=== PATIENT | male | born 1945 | race Caucasian/White ===

== ENCOUNTER → 2017-06-13 | Outpatient (CLI) | payer OTHER ==
[~2017-06-13] MED LIST: AMLO2.5T PO; ASPI81TA28 PO; LEVO125T5 PO; SIMV20TA2 PO
--- NOTE | 2017-06-13 12:40 | DIAGNOSTIC IMAGING REPORT ---
CHEST 2 VIEWS ROUTINE CLINICAL HISTORY: 72 years-old Male presenting with R05 [id number]. TECHNIQUE: PA and lateral views of the chest were obtained. COMPARISON: 12/09/2005. FINDINGS: Atherosclerosis of the aortic arch. Cardiac silhouette normal in size. Lungs and pleural spaces clear. Osseous structures normal. Cholecystectomy clips noted. IMPRESSION: 1. No acute cardiopulmonary disease. Electronically signed by: Huseyin Whitmore M.D. 06/13/2017 12:39 PM Dictated Date/Time: 06/13/2017 12:38 PM
== END | disposition home or self-care (01) ==
LOC: C.RAD1850 12:30
PROVIDERS: ATTEND Physician Assistant Medical
DX: R05 Cough (principal)

== ENCOUNTER 2021-01-08 20:35 | Inpatient (IN) ==
[2021-01-08 21:52] LABS: Basophils # (auto) 0.02 K/uL (0-0.2); Basophils % (auto) 0.2 %; Eosinophils # (auto) 0.12 K/uL (0-0.5); Eosinophils % (auto) 1.5 %; Hematocrit (blood only) 46.3 % (42-52); Hemoglobin 16.2 g/dL (14.0-18.0); Immature Granulocytes # (auto) 0.02 K/uL (0.00-0.02); Immature Granulocytes % (auto) 0.2 %; Lymphocytes # (auto) 0.98 K/uL (1.2-3.4); Lymphocytes % (auto) 12.1 %; Mean Corpuscular Hemoglobin 34.6 pg (25-34); Mean Corpuscular Volume 98.9 fL (80-100); Mean Platelet Volume 9.9 fL (7.4-10.4); Monocytes % (auto) 6.2 %; Neutrophils # (auto) 6.49 K/uL (1.4-6.5); Neutrophils % (auto) 79.8 %; Platelet Count 196 K/uL (130-400); RDW Standard Deviation 47.2 fL (36.4-46.3); Red Blood Count 4.68 M/uL (4.7-6.1); White Blood Count 8.13 K/uL (4.8-10.8)
[2021-01-08 22:01] LABS: INR 1.1 (0.9-1.1); Partial Thromboplastin Ratio 0.9; Partial Thromboplastin Time 24.1 Seconds (21.0-31.0); Prothrombin Time 11.4 Seconds (9.0-12.0)
[2021-01-08 22:28] LABS: Albumin Level 3.9 gm/dl (3.4-5.0); BUN Creatinine Ratio 10.4 (10-20); Calcium 8.8 mg/dl (8.5-10.1); Creatinine Clr Calc Pharmacy 45.1 ml/min; Est GFR (African American) 58.1 ml/min; Est GFR (Non-African American) 50.1 ml/min
[2021-01-08 22:40] LABS: Bilirubin,Total 0.5 mg/dl (0.2-1); Total Protein 6.9 gm/dl (6.4-8.2); Troponin I 4.83 ng/ml (0-0.045)
[2021-01-08 22:41] LABS: Albumin Globulin Ratio 1.3 (0.9-2)
[2021-01-08] MEDS ORDERED: OPTIRAY 320 125ml IV ONE (23:12)
--- NOTE | 2021-01-08 23:29 | Emergency Department Note ---
ED Visit Note Physician Evaluation Note: I have personally evaluated and examined this patient. I agree with assessment and plan of Tashia Rasmussen PA-C. Left chest pain around 3pm today after dental appointment. Resolved other than some residual left back discomfort. No history of CAD though father and daughter with cardiac issues. EKG initially unremarkable, repeat shows inversion T waves throughout. Positive Troponin. Given posterior pain felt CTA chest indicated which was fortunately unremarkable. Charles Moore MD
--- NOTE | 2021-01-09 00:03 | History & Physical Report ---
Date of Service January 09, 2021 Assessment & Plan (1) NSTEMI (non-ST elevated myocardial infarction): Plan: Mr. Zambrano is a 75 yo M with HTN, HLD and prediabetes who presented for evaluation of sudden onset left sided chest pain. - Initial trop elevated to 4.8 + EKG changes (T wave inversions in lateral leads) concerning for NSTEMI. - Chest CTA ruled out other causes of chest pain, including PE and aortic dissection. 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 - continue heparin gtt - nitroglycerin prn - cards consult ordered, suspect patient will need a cath (2) Prediabetes: Plan: - HbA1c was 6.3 (last checked 12/21/20) - recommend DMII carb consistent diet when no longer NPO (3) Hypertension: Plan: - continue home dose amlodipine (4) Hyperlipidemia: Plan: - lipid panel from 12/21/20 showing good control with a total cholesterol of 129, LDL of 58, HDL of 46, ratio of 3 - change from home simvastatin to high intensity statin with Crestor 20mg, daily given presentation with NSTEMI - continue daily baby aspirin (5) Hypothyroidism: Plan: - continue home dose levothyroxine Diet: NPO in the event of possible cath. Recommend heart healthy, DMII diet when able to eat DVT ppx: On heparin gtt Dispo: PCU/tele Code: Full, I discussed with patient History of Present Illness Primary Care Provider: Rhys George MD Mr. Zambrano is a 75 yo M with a PMHx of prediabetes, HTN, HLD who presented to the [facility] ED for evaluation of new onset left sided chest pain. It began at 3pm this afternoon after a dental appointment. It radiated the intrascapular region of the back - not up to the jaw or down the left arm. He did find himself slightly short of breath at the time the pain came on - however he denied any nausea or diaphoresis. He states that he took 3 tabs of aspirin 81mg in an effort to treat the pain prior to coming to the ED. For the past 3 months, when outdoors mowing his lawn (with a push mower) he would get pain in the anterior aspect of his neck. It seemed to be exertional. Social Hx: He was a former smoker - quit 40 years ago. No eoth use. Family Hx: Father of an AR at age 58. In the ED, his vitals were normal. Troponin was elevated to 4.8. His CBC was normal. CMP was unremarkable except for an elevated AST of 64. His EKG showed non-specific T wave inversions in lateral leads. CXR was normal. Chest CTA showed no evidence of PE or aortic dissection (per STAT RAD). He was started on a heparin drip (no bolus). Allergies Allergy/AdvReac Type Severity Reaction Status Date / Time No Known Allergies Allergy Unknown Verified 01/08/21 23:47 Home Medications Medication Instructions Recorded Confirmed Type amlodipine 2.5 mg tablet 2.5 mg PO DAILY #90 tab 12/05/20 01/08/21 Rx levothyroxine 137 mcg tablet 137 mcg PO DAILY #90 tab 12/05/20 01/08/21 Rx simvastatin 20 mg tablet 20 mg PO HS #90 tab 12/05/20 01/08/21 Rx aspirin 81 mg tablet,delayed 81 mg PO HS 01/08/21 01/08/21 History release aspirin 81 mg tablet,delayed 243 mg PO ONCE 01/08/21 01/08/21 History release Past Med/Surg History Medical History Arthritis of hand History of colon polyps 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 Hyperlipidemia Hypertension Hypothyroidism Surgical History History of appendectomy History of cataract surgery RT/LEFT History of colonoscopy History of COVID-27 MAY 2020 (POOR APPETITE, NO ENERGY) History of ERCP HX OF PANCREATITIS History of esophagogastroduodenoscopy (EGD) [place] teeth removed Family History Grandfather (Maternal) Diabetes Sister Breast cancer Mother Breast cancer Father Myocardial infarction Other No family history of adverse response to anesthesia Denies family history of Ovarian cancer Prostate cancer Colorectal cancer Social History Smoking Status: Former smoker Tobacco Type: Cigarettes Age Started Using Tobacco: 10; Age Quit Using Tobacco: 33; packs per day: 3; Cigarettes Per Day: QUIT OVER 40 YEARS AGO; Second Hand Exposure: No; Hx Alcohol Use: Yes Alcohol type: beer Alcohol Intake Frequency: 2-3 x/Week Alcohol Intake Frequency Comment: more in the summer, socially Hx Substance Use: No Preferred Language: Burundian Communication Ability: Effective Visual Impairment: No Limitations Hearing Ability: Use of Hearing Aid 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: No Beliefs That Will Affect Care: None marital status: Current Living Situation: Spouse current occupational status: employed and retired 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, 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 Feels Safe at Home: Yes Childhood Exposure to Second-Hand Smoke: Yes Dental Care, Regularly: Yes Physical Activity Frequency: Daily Seatbelt Use: always Sunscreen Use: Yes (occasionally) Assistive Devices: Hearing Aid - Bilateral Review of Systems Review of Systems: as per HPI Physical Exam Constitutional: WD/WN, vitals as above cooperative; no acute distress Eyes: + anicteric sclerae ENMT: external ear and nose normal, oropharynx normal Neck: trachea midline Respiratory: normal respiratory effort, lungs clear to auscultation Cardiovascular: RRR, no murmur, no edema Heart Sounds: normal S1 and normal S2 Vessels: normal carotid upstroke; no carotid bruit Extremities: no pedal edema Gastrointestinal (Abdomen): normal bowel sounds, soft, nontender, no hepatosplenomegaly Musculoskeletal: Head/Neck/Chest: normocephalic and head atraumatic Skin: no rashes, warm and dry Psychiatric: A+Ox3, euthymic affect Results & Data Results & Data ([facility]) Vital Signs (Past 12 Hours) Vital Signs Temp Pulse Resp BP Pulse Ox 01/08/21 23:36 95 01/08/21 23:22 68 14 155/87 H 95 01/08/21 20:52 36.9 C 77 18 168/110 H 96 Supervising Physician Co-Signing Physician Notes Attending addendum: I have physically seen this patient, have supervised the medical residents activities, and agree with the H&P unless as otherwise noted. Assessment and Plan: Non-STEMI/hypertension- The patient will be admitted to telemetry for serial cardiac enzymes, serial EKG's, cardiac rhythm monitoring and a 2-D echocardiogram with Dopplers. Troponin IV 4.830 upon admission Continue amlodipine Heparin standard concentration drip IV per protocol. Aspirin 81 mg daily, did receive 324 loading dose this evening Consult cardiology Hyperlipidemia- Change from simvastatin to high-dose statin Crestor 20 mg daily Hypothyroidism- Continue levothyroxine Remaining orders and notations as noted Resident Activity Tracking Resident Involvement: Resident Care Provided Care Provided: Adult [facility]
[2021-01-09] MEDS ORDERED: Heparin IV Adult Wt-Based Standard *NO* Bolus Protocol ONE (00:07)
[2021-01-09] MEDS ORDERED: ASPIRIN 81 MG ECTAB PO STA (00:21)
[2021-01-09] MEDS ORDERED: HEPARIN SODIUM/DEXTROSE 25,000 UNITS/500 ML BAG IV SCH (00:30)
--- NOTE | 2021-01-09 01:12 | Emergency Department Note ---
History of Present Illness General Chief Complaint: Chest Pain Stated Complaint: CHEST PAIN Time Seen by Provider: 01/08/21 22:48 History of Present Illness Maximum Pain Intensity: 6 This 75-year-old with no prior heart disease presents to the ER complaining of chest pain that goes to his back since 3 PM today after leaving the dentist office Location: Chest Quality: Discomfort Severity: Moderate Duration: Today Timing: Started at 3 PM Context: Patient was concerned and came in Modifying factors: better with nothing; worse with activity Patient took 3 aspirins prior to arrival. He states the pain is eased up a fair bit. No prior stress test or echo. He quit smoking 40 years ago. Patient denies dyspnea, abdominal pain, numbness, tingling, localized weakness, diapho resis. He states earlier the pain was quite severe but is much better now. Home Medications Medication Instructions Recorded Confirmed Type amlodipine 2.5 mg tablet 2.5 mg PO DAILY #90 tab 12/05/20 01/08/21 Rx levothyroxine 137 mcg tablet 137 mcg PO DAILY #90 tab 12/05/20 01/08/21 Rx simvastatin 20 mg tablet 20 mg PO HS #90 tab 12/05/20 01/08/21 Rx aspirin 81 mg tablet,delayed 81 mg PO HS 01/08/21 01/08/21 History release aspirin 81 mg tablet,delayed 243 mg PO ONCE 01/08/21 01/08/21 History release Allergies Allergy/AdvReac Type Severity Reaction Status Date / Time No Known Allergies Allergy Unknown Verified 01/08/21 23:47 Past Med/Surg History Medical History Arthritis of hand History of colon polyps 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 Hyperlipidemia Hypertension Hypothyroidism Surgical History History of appendectomy History of cataract surgery RT/LEFT History of colonoscopy History of COVID-27 MAY 2020 (POOR APPETITE, NO ENERGY) History of ERCP HX OF PANCREATITIS History of esophagogastroduodenoscopy (EGD) [place] teeth removed Family History Grandfather (Maternal) Diabetes Sister Breast cancer Mother Breast cancer Father Myocardial infarction Other No family history of adverse response to anesthesia Denies family history of Ovarian cancer Prostate cancer Colorectal cancer Social History Smoking Status: Former smoker Tobacco Type: Cigarettes Age Started Using Tobacco: 10; Age Quit Using Tobacco: 33; packs per day: 3; Cigarettes Per Day: QUIT OVER 40 YEARS AGO; Second Hand Exposure: No; Hx Alcohol Use: Yes Alcohol type: beer, wine and hard liquor Alcohol Intake Frequency: 2-3 x/Week Alcohol Intake Frequency Comment: more in the summer, socially Hx Substance Use: No Preferred Language: Georgian Communication Ability: Effective Visual Impairment: No Limitations Hearing Ability: Use of Hearing Aid Bank Courier Required: No Beliefs That Will Affect Care: None marital status: Current Living Situation: Spouse current occupational status: employed and retired 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, 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 Feels Safe at Home: Yes Childhood Exposure to Second-Hand Smoke: Yes Dental Care, Regularly: Yes Physical Activity Frequency: Daily Seatbelt Use: always Sunscreen Use: Yes (occasionally) Assistive Devices: Hearing Aid - Bilateral Review of Systems A total of 10 systems reviewed and were otherwise negative Physical Exam Vital Signs Vital Signs - 24 hr 01/08/21 20:52 01/08/21 23:22 01/08/21 23:36 Temperature 36.9 C Temperature Source Temporal Artery Scan Pulse Rate 77 68 Pulse Rate from SpO2 Sensor 69 Respiratory Rate 18 14 Respiratory Depth Normal Blood Pressure 168/110 H 155/87 H Blood Pressure Mean 129 109 Pulse Oximetry 96 95 95 Oxygen Delivery Method Room Air Room Air Sepsis Recent Fever Within 48 Hours No Sepsis New/Unexplained Change in Mental Status N/A Sepsis Action Taken by Nursing No Action Required VITALS: Vitals are noted on the nurse's note and reviewed by myself. Vital signs stable. GENERAL: Pleasant male, in no acute distress, nondiaphoretic, well-developed well-nourished. SKIN: The skin was without rashes, erythema, edema, or bruising. There is no tenting of the skin. Capillary reflex less than 2 seconds. HEAD: Normocephalic atraumatic. EARS: External auditory canals clear, EYES: Pupils equal round and reactive to light and accommodation. Conjunctivae without injection, sclerae without icterus. Extraocular movements intact. NOSE: Patent, turbinates without inflammation or discharge. MOUTH: Mucous membranes moist. Pharynx without erythema or exudate. Uvula midline. Airway patent. Tongue does not deviate. NECK: Supple without nuchal rigidity. No lymphadenopathy. No thyromegaly. Cervical spine is nontender. No JVD. HEART: Regular rate and rhythm LUNGS: Clear to auscultation bilaterally without wheezes, rales or rhonchi. No retractions or accessory muscle use. ABDOMEN: Positive bowel sounds x 4. Normal tympanic percussion. Soft, nontender, without masses or organomegaly. Connell sign negative. No guarding or rebound tenderness. No CVA tenderness MUSCULOSKELETAL: No muscle atrophy, erythema, or edema noted. NEURO: Patient was alert and oriented to person place and time. Normal sensation to light and sharp touch. No focal neurological deficits. Course Administered Medications Heparin Sodium/Dextrose (Heparin Sodium/Dextrose) 25,000 units in 500 mls @ 26 mls/hr IV .[id number] [facility]; Protocol Stop: 02/08/21 00:29 Last Admin: 01/09/21 00:51 Dose: 1,300 units/hr, 26 mls/hr Documented by: [id number] Cosigned by: [id number] Discontinued Medications Aspirin (Aspirin 81 Mg Ectab) 81 mg PO ONE STA Stop: 01/09/21 00:22 Last Admin: 01/09/21 00:53 Dose: 81 mg Documented by: [id number] Ioversol (Optiray 320 125ml) 110 ml IV ONCE ONE Stop: 01/08/21 23:13 Last Admin: 01/08/21 23:13 Dose: 1 ml Documented by: [id number] Medical Decision Making Medical Records Attestation: I reviewed the patient's medical records. Home Medications Current Medication List: was personally reviewed by ok Laboratory Data Attestation: I reviewed the patient's lab results. Result diagrams: 01/08/21 21:36 01/08/21 21:36 Labs: Lab Results 01/08/21 01/08/21 01/08/21 Range/Units 21:36 21:36 21:36 WBC 8.13 (4.8-10.8) K/uL RBC 4.68 L (4.7-6.1) M/uL Hgb 16.2 (14.0-18.0) g/dL Hct 46.3 (42-52) % MCV 98.9 (80-100) fL MCH 34.6 H (25-34) pg MCHC 35.0 (32-36) g/dL RDW Std Deviation 47.2 H (36.4-46.3) fL RDW Coeff of Gio 13.0 (11.5-14.5) % Plt Count 196 (130-400) K/uL MPV 9.9 (7.4-10.4) fL Immature Gran % (Auto) 0.2 % Neut % (Auto) 79.8 % Lymph % (Auto) 12.1 % [place] % (Auto) 6.2 % Eos % (Auto) 1.5 % Baso % (Auto) 0.2 % Neut # (Auto) 6.49 (1.4-6.5) K/uL Lymph # (Auto) 0.98 L (1.2-3.4) K/uL [place] # (Auto) 0.50 (0.11-0.59) K/uL Eos # (Auto) 0.12 (0-0.5) K/uL Baso # (Auto) 0.02 (0-0.2) K/uL Immature Gran # (Auto) 0.02 (0.00-0.02) K/uL PT 11.4 (9.0-12.0) Seconds INR 1.1 (0.9-1.1) APTT 24.1 (21.0-31.0) Seconds PTT Ratio 0.9 Sodium 144 (136-145) mmol/L Potassium 4.0 (3.5-5.1) mmol/L Chloride 110 H (98-107) mmol/L Carbon Dioxide 32 (21-32) mmol/L Anion Gap 2.0 L (3-11) BUN 14 (7-18) mg/dl Creatinine 1.37 (0.6-1.4) mg/dl Est Cr Clr Drug Dosing 45.1 ml/min Est GFR ( Amer) 58.1 ml/min Est GFR (Non-Af Amer) 50.1 ml/min BUN/Creatinine Ratio 10.4 (10-20) Glucose 166 H (70-99) mg/dl Calcium 8.8 (8.5-10.1) mg/dl Total Bilirubin 0.5 (0.2-1) mg/dl AST 64 H (15-37) U/L ALT 55 (12-78) U/L Alkaline Phosphatase 137 H (45-117) U/L Troponin I 4.830 H* (0-0.045) ng/ml Total Protein 6.9 (6.4-8.2) gm/dl Albumin 3.9 (3.4-5.0) gm/dl Globulin 3.0 (2.5-4.0) gm/dl Albumin/Globulin Ratio 1.3 (0.9-2) MDM Narrative Prior records/ancillary studies reviewed. Triage Nursing notes reviewed. Additional history obtained from family. The patient's history was concerning for chest pain. Differential diagnosis: Etiologies such as cardiac ischemia, aortic dissection, pulmonary embolism, pneumonia, pneumothorax, musculoskeletal, infections, pericarditis, myocarditis, esophageal rupture, gastrointestinal, as well as others were entertained. Physical examination: As above. ER treatment provided: An order was placed for continuous cardiac monitoring. The monitor shows a rate of 60-100 with a sinus rhythm. IV and stat dissection order On reassessment the patient felt better. Diagnostic interpretation by me: #1 the electrocardiogram was negative for pathologic change. Normal sinus, norm al intervals, no acute ST-T wave changes. Rate is 70. Impression normal sinus rhythm interpreted by myself EKG ordered for chest pain I think arrhythmia is unlikely. EKG shows normal sinus rhythm with no interval abnormalities such as QT prolongation or WPW. There are no findings to suggest Brugada syndrome. Cardiac monitoring in the emergency department reveals no tachycardic or bradycardic dysrhythmia. Hypertrophic cardiomyopathy was considered but there are no clear historical elements pointing toward this. EKG is not suggestive. The QRS voltage is not extremely large and there are no sug gestive Q waves. #2 EKG ordered for positive troponin EKG: Normal sinus, T wave inversions lead I and aVL, rate of 65, normal intervals,. Impression new T wave inversions in the anterior leads interpreted by myself I think arrhythmia is unlikely. EKG shows normal sinus rhythm with no interval abnormalities such as QT prolongation or WPW. There are no findings to suggest Brugada syndrome. Cardiac monitoring in the emergency department reveals no tachycardic or bradycardic dysrhythmia. Hypertrophic cardiomyopathy was considered but there are no clear historical elements pointing toward this. EKG is not suggestive. The QRS voltage is not extremely large and there are no suggestive Q waves. #3 EKG ordered for chest pain EKG: Normal sinus, T wave inversions lead I and aVL, rate of 65, normal intervals, T wave flattening in the lateral leads. Impression T wave inversions and T wave flattening in the anterior lateral leads interpreted by myself I think arrhythmia is unlikely. EKG shows normal sinus rhythm with no interval abnormalities such as QT prolongation or WPW. There are no findings to suggest Brugada syndrome. Cardiac monitoring in the emergency department reveals no tachycardic or bradycardic dysrhythmia. Hypertrophic cardiomyopathy was considered but there are no clear historical elements pointing toward this. EKG is not suggestive. The QRS voltage is not extremely large and there are no suggestive Q waves. The labs revealed positive troponin Imaging studies: Chest x-ray with no acute consolidation, pneumothorax or free air per my trepidation Preliminary Findings Only See Final Report For Complete Findings CT CHEST W/WO Contrast: No pulmonary artery filling defects to suggest pulmonary artery thrombosis. No thoracic aortic aneurysm or dissection is present. Minimal atherosclerotic vascular calcifications. Heart is normal size. No evidence for right heart strain. No pericardial fluid or thickening. Mild bilateral dependent atelectasis. No definite lobar pneumonia. Emphysematous changes with bullae greatest in the upper lobes. No pleural effusion or pneumothorax. No acute fracture is identified. Degenerative changes of the thoracic spine. Limited images of the upper abdomen demonstrates prominent hypodense/fatty liver. Status post cholecystectomy. Radiologist: Joaquin Cannon M.D. HEART SCORE: Hx: high/mod/low suspicion: 2 ECG: ST depression/nonspecific changes/normal: 1 Age: Greater than 65/45-64/less than 45: 2 Risk factors: (Hypertension, hyperlipidemia, diabetes, coronary disease, tobacco use, cocaine use): 2 Troponin: Greater than 2 times normal limits/1-2 times normal limits/normal: 2 Total: 9 Consultation: A consultation was placed with the hospitalist. The case was discussed and diagnostics were reviewed. The patient was evaluated in the ER for further treatment. Exam and history seem consistent with NSTEMI. Patient was started on heparin. This was discussed with the hospitalist. CTA was negative. Heart score is high. Patient is agreeable. Patient was reassessed multiple times. EKG was ordered x3. First troponin was quite elevated. No STEMI on EKG x3. No recent cardiac work-up per patient. Patient was admitted to the medical service. By the evaluation outlined above emergent etiologies such as aortic dissection, pulmonary embolism, pneumonia, pneumothorax, infections, pericarditis, myocarditis, gastrointestinal, as well as others were deemed relatively unlikely. The pt informed about the findings as listed above. All questions were answered and pleased with the treatment. Impression & Plan NSTEMI (non-ST elevated myocardial infarction) Critical Care Time Critical Care Time: Yes Total Critical Care Time: 35 I have personally spent 35 minutes of critical care time in the direct management of this patient. This includes bedside care, interpretation of diagnostic studies, and testing, discussion with consultants, patient, and f amily members, and other required patient management activities. This 35 minutes is in excess of all separately billable procedures. Discharge Plan Visit Data Chief Complaint: Chest Pain Stated Complaint: CHEST PAIN ED Provider: Charles Moore ED Midlevel Provider: Hilary Rasmussen Discharge Problem: NSTEMI (non-ST elevated myocardial infarction) Patient Disposition: Admitted As Inpatient Condition: Fair
[2021-01-09] MEDS ORDERED: NITROGLYCERIN SL 0.4 MG/TAB TAB SL PRN (03:02)
[2021-01-09] MEDS ORDERED: ACETAMINOPHEN 325 MG TAB PO PRN (03:02)
[2021-01-09] MEDS ORDERED: ONDANSETRON INJ 2 MG/ML 2 ML VIAL IV PRN (03:02)
[2021-01-09] MEDS: SODIUM CHLORIDE 0.9% 1000ML 1,000 ML IV SCH ×2 (03:30→12:12)
[2021-01-09] MEDS ORDERED: NITROGLYCERIN 2% OINTMENT 30GM TUBE EXT SCH (05:30)
[2021-01-09] MEDS ORDERED: STAT IV Infusion **Titration per Protocol STA (06:02)
[2021-01-09] MEDS ORDERED: NITROGLYCERIN/D5W 100MCG/ML 250 ML IV SCH (06:15)
[2021-01-09] MEDS ORDERED: LEVOTHYROXINE SODIUM 137 MCG TABLET PO SCH (06:30)
--- NOTE | 2021-01-09 07:10 | XRay Report ---
XR chest 1V portable CLINICAL HISTORY: Chest Pain COMPARISON STUDY: June 13, 2017 FINDINGS: No pneumothorax. No pleural effusion. Reticular opacities are seen at the right lower lung region and could represent infiltrative process, atelectasis or/and chronic scarring. This area appear more prominent than on prior chest radiograph. Cardiomediastinal silhouette is within normal limits in size. No significant pulmonary vascular congestion.. Osseous structures: Minimal degenerative changes of the spine. IMPRESSION: 1. Reticular opacity at the right lower lung which could represent atelectasis, infiltrate or/and ch ronic scarring. ACT 112: Negative or not required by law. The above report was generated using voice recognition software. It may contain grammatical, syntax o r spelling errors. Electronically signed by: Brandi Horowitz DO 01/09/2021 7:08 AM
[2021-01-09 07:48] LABS: Partial Thromboplastin Ratio 2.2
[2021-01-09 07:53] LABS: Partial Thromboplastin Time 58.7 Seconds (21.0-31.0)
--- NOTE | 2021-01-09 08:08 | CT Scan Report ---
CT ANGIOGRAM OF THE CHEST COMBO CLINICAL HISTORY: Chest pain into back COMPARISON STUDY: None TECHNIQUE: Before and following the IV administration of 119 cc of Optiray, CT angiogram of the chest was performed from the thoracic inlet to the upper abdomen utilizing the dissection protocol. Images are reviewed in the axial, sagittal, and coronal planes. 3-D MIPS images are created and assessed. I V contrast was administered without complication. A dose lowering technique was utilized adhering to the principles of ALARA. CT DOSE: 625.98 mGy.cm FINDINGS: There is adequate opacification of the aortic arch. Thoracic aorta is normal in caliber without aneur ysmal dilatation or dissection. No aortic wall hematoma is seen. Scattered calcified plaques are seen within aortic wall. Greater vessels are normal in caliber and patent. Few calcified plaques are seen within greater vessel granados. Visualized abdominal portion of aorta is normal in caliber. Thyroid: Is not well seen. Distal aspect of esophagus is patent. Small fat containing hiatal hernia is seen. Pulmonary vasculature: The pulmonary artery is normal in caliber.. Heart: The heart is normal in size and configuration, and without pericardial effusion. Moderate romelia nary calcifications. Lungs and pleural spaces: Tracheobronchial tree is patent. Moderate centrilobular upper lobe dominant emphysema is seen. No large infiltrates or consolidative lesions are seen. There is atelectasis at dependent portions of bilateral lower lobes. No pleural effusion demonstrated. Mild bilateral apical pleural parenchymal scarring is seen. -9 mm pulmonary nodule is seen within the right apex (4/32) -5 mm pulmonary nodule is seen within lingula (4/134) No other pulmonary nodules are seen however evaluation is limited due to partial expiratory phase. Upper abdomen: Limited evaluation of upper abdominal viscera shows cirrhotic morphology of the liver and status post cholecystectomy.. Skeletal structures: Minimal degenerative changes of the spine.. IMPRESSION: 1. Normal appearance of thoracic aorta without aneurysmal dilatation or dissection. No intramural he matoma is seen. 2. No large infiltrates or consolidative lesions are seen. Mild atelectasis. Limited exam due to par tial expiratory phase and low lung volumes 3. Pulmonary nodules, largest is measured 9 mm in size. In the absence of prior study for comparison , short-term follow-up in 3-6 months is recommended per Fleischner Society guidelines. 4. Emphysema. 5. Cirrhotic morphology of the liver. Please correlate above-mentioned findings with prior history. 6. The rest of findings as above. ACT 112: Positive. There are findings on this exam that require communication between the performing entity and the patient following Patient Test Result Information Act ([place] Act 112) guidelines. The above report was generated using voice recognition software. It may contain grammatical, syntax o r spelling errors. Electronically signed by: Brandi Horowitz DO 01/09/2021 8:07 AM
[2021-01-09] MEDS ORDERED: amLODIPine BESYLATE 5 MG TAB PO SCH (09:00)
[2021-01-09] MEDS ORDERED: ROSUVASTATIN CALCIUM 20 MG TAB PO SCH (09:00)
[2021-01-09] MEDS ORDERED: ASPIRIN 81 MG ECTAB PO SCH (09:15)
--- NOTE | 2021-01-09 09:45 | Cardiology Consultation ---
Date of Consultation January 09, 2021 Assessment & Plan (1) NSTEMI (non-ST elevated myocardial infarction): (2) Hypertension: (3) Hyperlipidemia: (4) Ischemic cardiomyopathy: ASSESSMENT/PLAN: 1. NSTEMI: Currently pain-free. Discussed diagnosis with patient and his . Continue aspirin 81 mg daily. On heparin drip. Recommended cardiac catheterization. Risks and benefits discussed with him in detail. He was made aware that CT surgery is not available at this facility. Continue high- intensity statin therapy. Not currently on beta-aaliyah as he has been bradycardic but if heart rate improves, would recommend carvedilol. Recommend LA-inhibitor. Cardiac rehabilitation on discharge. 2. Ischemic cardiomyopathy: Hopefully LV systolic function improves if revascularization can be achieved. Recommend low-dose carvedilol if heart rate tolerates beta-aaliyah. Recommend LA-inhibitor. He appears euvolemic on examination. 3. Hypertension: Blood pressure well controlled. If blood pressure becomes an issue with titrating other cardiac meds, would recommend discontinuation of amlodipine. 4. Dyslipidemia: Agree with high-intensity statin therapy. 5. Disposition: Cardiology will continue to follow. Cardiac catheterization planned for today. Highly complex medical issues. Thank you for allowing me to participate in the care of your patient. Please call for any other questions or concerns. Sincerely, Mason Aguilera M.D. History of Present Illness Reason for Consultation: NSTEMI Requesting Physician: Dr. Perkins Attending Physician: Lyndon Glez, History of Present Illness Mr. Juan is a very pleasant 75-year-old gentleman with a history significant for hypertension, dyslipidemia, and prediabetes. He was admitted on 01/09/2021 with NSTEMI. For the past 2 months or so he has been experiencing pain at the base of his th roat while using a push mower and other strenuous activities that would resolve with rest. On 01/08/2021 when driving home from a dentist appointment, he noted upper substernal chest discomfort that radiated straight through the back and into the neck. He did not immediately come to the emergency department but estimates that he drove in with his sometime around or after 8:00 p.m.. ECG demonstrated lateral T-wave inversion with perhaps slight but nondiagnostic ST elevation in I and aVL. He was given nitroglycerin paste and eventually nitroglycerin drip as well as a heparin drip. The pain subsided but then recurred just slightly at approximately 3:00 a.m. before quickly resolving again. He has been chest pain-free since then. He denies associated shortness of breath or diaphoresis. He denies melena, hematochezia, hematuria, or other bleeding. He denies syncope, near-syncope, palpitations, edema. He has not had a cardiac catheterization in the past. Review of systems: As above. Review of systems otherwise negative/unremarkable. Family history: Father at the age of 58 with LA. Social history: He quit smoking approximately 40 years ago after 3 packs per day for approximately 20 years. Occasional alcohol. No drugs. Lives at home with his . Three children. Grandchildren. Great grandchildren. Retired but currently works part-time at a [employer] course. He enjoys fishing. His present at the bedside. Allergies Allergy/AdvReac Type Severity Reaction Status Date / Time No Known Allergies Allergy Unknown Verified 01/08/21 23:47 Home Medications Medication Instructions Recorded Confirmed Type amlodipine 2.5 mg tablet 2.5 mg PO DAILY #90 tab 12/05/20 01/08/21 Rx levothyroxine 137 mcg tablet 137 mcg PO DAILY #90 tab 12/05/20 01/08/21 Rx simvastatin 20 mg tablet 20 mg PO HS #90 tab 12/05/20 01/08/21 Rx aspirin 81 mg tablet,delayed 81 mg PO HS 01/08/21 01/08/21 History release aspirin 81 mg tablet,delayed 243 mg PO ONCE 01/08/21 01/08/21 History release Patient History Medical History Arthritis of hand History of colon polyps 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 Hyperlipidemia Hypertension Hypothyroidism Surgical History History of appendectomy History of cataract surgery RT/LEFT History of colonoscopy History of COVID-27 MAY 2020 (POOR APPETITE, NO ENERGY) History of ERCP HX OF PANCREATITIS History of esophagogastroduodenoscopy (EGD) Wise teeth removed Family History Grandfather (Maternal) Diabetes Sister Breast cancer Mother Breast cancer Father Myocardial infarction Other No family history of adverse response to anesthesia Denies family history of Ovarian cancer Prostate cancer Colorectal cancer Social History Smoking Status: Former smoker Tobacco Type: Cigarettes Age Started Using Tobacco: 10; Age Quit Using Tobacco: 33; packs per day: 3; Cigarettes Per Day: QUIT OVER 40 YEARS AGO; Second Hand Exposure: No; Hx Alcohol Use: Yes Alcohol type: beer Alcohol Intake Frequency: 2-3 x/Week Alcohol Intake Frequency Comment: more in the summer, socially Hx Substance Use: No Preferred Language: Polish Communication Ability: Effective Visual Impairment: No Limitations Hearing Ability: Use of Hearing Aid Customer Resolution Specialist Required: No Beliefs That Will Affect Care: None marital status: Current Living Situation: Spouse current occupational status: employed and retired 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 Alert and oriented. HEENT: Anicteric sclera. Neck: No JVD. No bruits. Normal carotid upstrokes bilaterally. Cardiac: PMI was nondisplaced. No ventricular heave. Regular. Normal S1-S2. No murmurs, rubs, or gallops. Pulmonary: Clear to auscultation bilaterally without wheezes, rales, or rhonchi. Abdomen: Soft, nontender, nondistended, with normoactive bowel sounds. No bruits noted. Extremities: 2+ radial pulses bilaterally. 2+ posterior tibialis pulses bilaterally. Trace bilateral lower extremity edema. No cyanosis. Psychiatric: Affect appears appropriate. Results & Data ([facility]) Vital Signs (Past 12 Hours) Vital Signs Temp Pulse Pulse Resp BP BP Pulse Ox 01/09/21 08:14 36.7 C 66 14 124/74 94 01/09/21 06:30 59 L 13 129/81 01/09/21 06:18 57 L 18 131/88 01/09/21 03:14 36.6 C 60 17 148/92 H 95 01/09/21 02:40 57 L 19 93 01/09/21 02:30 55 L 17 95 01/09/21 02:20 56 L 17 94 01/09/21 02:10 55 L 20 92 01/09/21 02:00 56 L 14 94 01/09/21 01:50 56 L 19 95 01/09/21 01:40 57 L 15 95 01/09/21 01:34 91 H 21 01/09/21 01:15 55 L 19 157/93 H 95 01/09/21 01:00 55 L 19 158/94 H 95 01/09/21 00:42 60 17 160/99 H 96 01/08/21 23:36 95 01/08/21 23:22 68 14 155/87 H 95 Laboratory Results Laboratory Results - last 24 hr 01/08/21 01/08/21 01/08/21 21:36 21:36 21:36 WBC 8.13 RBC 4.68 L Hgb 16.2 Hct 46.3 MCV 98.9 MCH 34.6 H MCHC 35.0 RDW Std Deviation 47.2 H RDW Coeff of Gio 13.0 Plt Count 196 MPV 9.9 Immature Gran % (Auto) 0.2 Neut % (Auto) 79.8 Lymph % (Auto) 12.1 Weston % (Auto) 6.2 Eos % (Auto) 1.5 Baso % (Auto) 0.2 Neut # (Auto) 6.49 Lymph # (Auto) 0.98 L Weston # (Auto) 0.50 Eos # (Auto) 0.12 Baso # (Auto) 0.02 Immature Gran # (Auto) 0.02 PT 11.4 INR 1.1 APTT 24.1 PTT Ratio 0.9 Sodium 144 Potassium 4.0 Chloride 110 H Carbon Dioxide 32 Anion Gap 2.0 L BUN 14 Creatinine 1.37 Est Cr Clr Drug Dosing 45.1 Est GFR ( Amer) 58.1 Est GFR (Non-Af Amer) 50.1 BUN/Creatinine Ratio 10.4 Glucose 166 H Calcium 8.8 Total Bilirubin 0.5 AST 64 H ALT 55 Alkaline Phosphatase 137 H Troponin I 4.830 H* Total Protein 6.9 Albumin 3.9 Globulin 3.0 Albumin/Globulin Ratio 1.3 COVID-19 Eval Order SARS-CoV-2 (PCR) 01/09/21 01/09/21 01/09/21 00:14 00:14 03:48 WBC RBC Hgb Hct MCV MCH MCHC RDW Std Deviation RDW Coeff of Gio Plt Count MPV Immature Gran % (Auto) Neut % (Auto) Lymph % (Auto) Weston % (Auto) Eos % (Auto) Baso % (Auto) Neut # (Auto) Lymph # (Auto) Weston # (Auto) Eos # (Auto) Baso # (Auto) Immature Gran # (Auto) PT INR APTT PTT Ratio Sodium Potassium Chloride Carbon Dioxide Anion Gap BUN Creatinine Est Cr Clr Drug Dosing Est GFR ( Amer) Est GFR (Non-Af Amer) BUN/Creatinine Ratio Glucose Calcium Total Bilirubin AST ALT Alkaline Phosphatase Troponin I 54.300 H* Total Protein Albumin Globulin Albumin/Globulin Ratio COVID-19 Eval Order Covid19 at [facility] SARS-CoV-2 (PCR) NEGATIVE 01/09/21 06:40 WBC RBC Hgb Hct MCV MCH MCHC RDW Std Deviation RDW Coeff of Gio Plt Count MPV Immature Gran % (Auto) Neut % (Auto) Lymph % (Auto) Weston % (Auto) Eos % (Auto) Baso % (Auto) Neut # (Auto) Lymph # (Auto) Weston # (Auto) Eos # (Auto) Baso # (Auto) Immature Gran # (Auto) PT INR APTT 58.7 H* PTT Ratio 2.2 Sodium Potassium Chloride Carbon Dioxide Anion Gap BUN Creatinine Est Cr Clr Drug Dosing Est GFR ( Amer) Est GFR (Non-Af Amer) BUN/Creatinine Ratio Glucose Calcium Total Bilirubin AST ALT Alkaline Phosphatase Troponin I Total Protein Albumin Globulin Albumin/Globulin Ratio COVID-19 Eval Order SARS-CoV-2 (PCR) Diagnostic Findings ECGs personally reviewed: ECG 01/08/2021 at 10:53 p.m.: Sinus rhythm with PVC. Lateral T-wave inversion. Lateral ST-elevation (nondiagnostic). ECG 01/08/2021 at 11:28 p.m.: Sinus rhythm 62 beats per minute. Lateral T-wave inversion with slight lateral ST elevation. ECG 01/09/2021 at 5:39 a.m.: Sinus bradycardia 58 beats per minute. Lateral ST/T-wave abnormalities as previously noted. Anterolateral T-wave inversion now more prominent. CTA chest 01/08/2021: Normal appearance of thoracic aorta without dissection or aneurysm. Pulmonary nodules. Emphysema. Cirrhotic morphology of the liver. Echo 01/09/2021: Mildly reduced LV systolic function with multiple regional wall motion abnormalities, predominantly LAD territory. Mild mitral regurgitation. Medications Administered Current Inpatient Medications Acetaminophen (Acetaminophen 325 Mg Tab) 650 mg PO Q4H PRN PRN Reason: Pain or Fever Stop: 02/08/21 03:01 Amlodipine Besylate (Amlodipine Besylate 5 Mg Tab) 2.5 mg PO DAILY [facility] Stop: 02/08/21 08:59 Aspirin (Aspirin 81 Mg Ectab) 81 mg PO QAM [facility] Stop: 02/08/21 09:14 Heparin Sodium/Dextrose (Heparin Sodium/Dextrose) 25,000 units in 500 mls @ 26 mls/hr IV .[id number] [facility]; Protocol Stop: 02/08/21 00:29 Last Admin: 01/09/21 00:51 Dose: 1,300 units/hr, 26 mls/hr Documented by: Sodium Chloride (Nss 1000ml) 1,000 mls @ 125 mls/hr IV .Q8H [facility] Stop: 01/09/21 19:01 Last Admin: 01/09/21 03:30 Dose: 125 mls/hr Documented by: Nitroglycerin/Dextrose (Nitroglycerin/D5w 100 Mcg/Ml) 250 mls @ 3 mls/hr IV .Q24H [facility]; Protocol Stop: 02/08/21 06:14 Last Admin: 01/09/21 06:19 Dose: 5 mcg/min, 3 mls/hr Documented by: Levothyroxine Sodium (Levothyroxine Sodium 137 Mcg Tablet) 137 mcg PO DAILYBB [facility] Stop: 02/08/21 06:29 Last Admin: 01/09/21 05:38 Dose: 137 mcg Documented by: Nitroglycerin (Nitroglycerin Sl 0.4 Mg/Tab Tab) 0.4 mg SL PRN PRN PRN Reason: Chest Pain Stop: 02/08/21 03:01 Nitroglycerin (Nitroglycerin 2% Ointment 30gm Tube) 1 inch EXT Q6H [facility] Stop: 02/08/21 05:29 Last Admin: 01/09/21 05:37 Dose: 1 inch Documented by: Ondansetron HCl (Ondansetron Inj 2 Mg/Ml 2 Ml Vial) 4 mg IV Q6H PRN PRN Reason: Nausea Stop: 02/08/21 03:01 Rosuvastatin Calcium (Rosuvastatin Calcium 20 Mg Tab) 20 mg PO QAM [facility] Stop: 02/08/21 08:59 PG Care Time/CCT Total # of Minutes Spent Total Time Spent with Patient: Total time spent is greater than 50% in coordination of care (as documented) at patient's floor/unit and/or counseling patient: Coding Level of Care Code 99376 Initial Inpt Care Lvl 3 Diagnoses NSTEMI (non-ST elevated myocardial infarction) I21.4 Hypertension I10 Hyperlipidemia E78.5 Ischemic cardiomyopathy I25.5
--- NOTE | 2021-01-09 10:01 | XRay Report ---
XR chest 1V portable CLINICAL HISTORY: Chest Pain COMPARISON STUDY: January 08, 2021 FINDINGS: No pneumothorax. No pleural effusion. No large infiltrates or consolidative lesions are seen. Redemonstration of the minimal reticular opac ity within the right lower lung which could represent atelectasis, infiltrate or chronic scarring; fi ndings are stable since recent prior study. Cardiomediastinal silhouette is within normal limits in size. No significant pulmonary vascular congestion.. Osseous structures: Minimal degenerative changes of the spine. IMPRESSION: 1. Stable minimal reticular opacity at the right lower lung which could represent atelectasis, infil trate or chronic scarring. ACT 112: Negative or not required by law. The above report was generated using voice recognition software. It may contain grammatical, syntax o r spelling errors. Electronically signed by: Brandi Horowitz DO 01/09/2021 9:59 AM
--- NOTE | 2021-01-09 10:06 | XCELERA ---
[id number]
--- NOTE | 2021-01-09 10:10 | Pre Anesthesia Assessment ---
Date of Service January 09, 2021 Pre Sedation Assessment Vital Signs Temp Pulse Pulse Resp BP BP Pulse Ox 01/09/21 08:14 36.7 C 66 14 124/74 94 01/09/21 06:30 59 L 13 129/81 01/09/21 06:18 57 L 18 131/88 01/09/21 03:14 36.6 C 60 17 148/92 H 95 01/09/21 02:40 57 L 19 93 01/09/21 02:30 55 L 17 95 01/09/21 02:20 56 L 17 94 01/09/21 02:10 55 L 20 92 01/09/21 02:00 56 L 14 94 01/09/21 01:50 56 L 19 95 01/09/21 01:40 57 L 15 95 01/09/21 01:34 91 H 21 01/09/21 01:15 55 L 19 157/93 H 95 01/09/21 01:00 55 L 19 158/94 H 95 01/09/21 00:42 60 17 160/99 H 96 01/08/21 23:36 95 01/08/21 23:22 68 14 155/87 H 95 01/08/21 20:52 36.9 C 77 18 168/110 H 96 Cardiovascular RRR, no murmur, no edema Respiratory normal respiratory effort, lungs clear to auscultation Pre-Sedation Airway Assessment Smoking Status: Former smoker Mallampati Class: II ASA: ASA3 NPO Status Date of Last Intake of Fluids: 01/08/21 Time of Last Intake of Fluids: 17:00 Date of Last Intake of Solid Food: 01/08/21 Time of Last Intake of Solid Foods: 17:00 Procedure Planning Contraindications for Sedation: none Current Medications Reviewed: Yes Notes The planned sedation has been discussed with the patient. Informed Consent was obtained. I have identified the patient, determined the appropriateness of sedation and have assessed the patient immediately prior to the procedure. All medicine(s) and interventions are by my order.
[2021-01-09] MEDS ORDERED: niCARdipine HCL INJ 2.5 MG/ML 10 ML AMP ONE (10:18)
[2021-01-09] MEDS ORDERED: NITROGLYCERIN/D5W 100MCG/ML 20ML SYR ONE (10:19)
[2021-01-09 10:20] LABS: Albumin Level 3.4 gm/dl (3.4-5.0); BUN Creatinine Ratio 11.1 (10-20); Calcium 8.1 mg/dl (8.5-10.1); Creatinine Clr Calc Pharmacy 56.1 ml/min; Est GFR (African American) 75.7 ml/min; Est GFR (Non-African American) 65.3 ml/min; Potassium 3.9 mmol/L (3.5-5.1)
[2021-01-09] MEDS ORDERED: fentaNYL citrate 100 MCG/2 ML VIAL ONE (10:22)
[2021-01-09] MEDS ORDERED: HEPARIN (PORCINE) 1000 UNIT/ML 10 ML (CATH LAB USE ONLY) ONE (10:22)
[2021-01-09] MEDS ORDERED: MIDAZOLAM HCL 1 MG/ML 2ML VIAL ONE (10:22)
[2021-01-09 10:23] LABS: Partial Thromboplastin Ratio 2.5
[2021-01-09 10:26] LABS: Partial Thromboplastin Time 66.5 Seconds (21.0-31.0)
[2021-01-09 10:27] LABS: Basophils # (auto) 0.02 K/uL (0-0.2); Basophils % (auto) 0.2 %; Eosinophils # (auto) 0.11 K/uL (0-0.5); Eosinophils % (auto) 1.3 %; Hematocrit (blood only) 43.2 % (42-52); Immature Granulocytes # (auto) 0.01 K/uL (0.00-0.02); Immature Granulocytes % (auto) 0.1 %; Lymphocytes # (auto) 1.43 K/uL (1.2-3.4); Lymphocytes % (auto) 16.5 %; Mean Corpuscular Hemoglobin 34.7 pg (25-34); Mean Corpuscular Hgb Conc 34.7 g/dL (32-36); Mean Platelet Volume 10.2 fL (7.4-10.4); Monocytes # (auto) 0.74 K/uL (0.11-0.59); Monocytes % (auto) 8.5 %; Neutrophils # (auto) 6.38 K/uL (1.4-6.5); Neutrophils % (auto) 73.4 %; Platelet Count 192 K/uL (130-400); RDW Coefficient of Variation 13.1 % (11.5-14.5); RDW Standard Deviation 48.1 fL (36.4-46.3); Red Blood Count 4.32 M/uL (4.7-6.1); White Blood Count 8.69 K/uL (4.8-10.8)
[2021-01-09 10:30] LABS: Albumin Globulin Ratio 1.3 (0.9-2); Globulin 2.7 gm/dl (2.5-4.0); Total Protein 6.1 gm/dl (6.4-8.2); Troponin I 31.7 ng/ml (0-0.045)
--- NOTE | 2021-01-09 11:27 | Cardiac Catheterization ---
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 Cardiac Status Clinical evaluation leading to the procedure CAD Presenation: Non STEMI Anginal Classification: CCS IV Heart Failure: No Cardiogenic Shock within 24 Hours: No Cardiac Arrest within 24 Hours: No Imaging Studies Past 6 Months: Yes Stress Studies Past 6 Months: No Coronary Anatomy Dominant: Right Diagnostic Physicians Name: Ihsan Aguilera MD Status: Elective Closure Device Percutaneous Entry Location: Radial Closure Device: Radial Band Recommendations: CABG Cardiac Cath Procedure Full Procedure Date January 09, 2021 Pre-Procedure Diagnosis Pre-Procedure Diagnosis: Non STEMI AUC Score AUC Score: 9 Post-Procedure Diagnosis Post-Procedure Diagnosis: Severe CAD and Elevated Intracardiac Pressures Procedure(s) Performed Procedure(s) Performed: Coronary Angiography and Left Heart Cath Digital Product Specialist Ihsan Aguilera MD Care Consultant(s) Showers Estimated Blood Loss Estimated Blood Loss: < 30 ml Medication(s) Medication(s): Fentanyl, Heparin, Lidocaine 1%, Nicardipine and Versed Summary of Findings Procedures: 1. Coronary angiography 2. Left heart catheterization 3. Moderate sedation Coronary angiography: 1. Left main: Calcifications noted. No significant CAD. 2. Left anterior descending: Large caliber vessel that wraps around the apex. Ostial to proximal LAD approximately 70%. Mid LAD 70 to 80%, followed by 40%. KAYA-3 flow. Large D1 ostial to proximal 80 to 90%. 3. Circumflex: Medium caliber vessel. Mid circumflex 30 to 40%. Distal circumflex into OM1 50-70%. 4. Right Coronary Artery: Dominant vessel. Large caliber vessel. Proximal RCA 30 to 40%. Mild calcifications noted proximally. Mid RCA 70% followed by 30%. Distal RCA 30%. No significant CAD in the PDA or PL branch. Left heart catheterization: 1. Left ventriculography was not performed. 2. No significant aortic stenosis. Peak to peak gradient across the aortic valve was 0. 3. Mildly elevated LVEDP; 14 mmHg. Moderate sedation: 1. Sedation start time: 10:40 AM 2. Sedation end time: 11:01 AM Impression: 1. Multivessel CAD 2. No aortic stenosis. 3. Elevated left-sided filling pressure. Plan: 1. Images were reviewed with interventional cardiology. Recommended evaluation by CT surgery for possible CABG. 2. Continue nitroglycerin drip, heparin drip after hemostasis achieved, and other medical therapy as appropriate. 3. CT surgery and Cardiology at [facility] were contacted and he has been accepted for transfer. Hemodynamics Rest Ao:: 108/54 Final Ao: 107/54 LV: 105/5/14 Recommendations Recommendations: CABG Specimens Specimens: None Radiation Exposure (mGy) 772 mGy. Fluoro time 2.4 min. Contrast (mls) 70 ml Procedural Complication(s) None Disposition Pillow Cleaner Holding/Recovery I attest to the content of the Intraoperative Record and any orders documented therein. Any exceptions are noted below. [facility] Card Cath Procedure Codes Cardiac Catheterization Procedure 1: Cardiovascular Cath Procedures: 26209 Coronaries and LHC (+/-LV) Moderate Sedation Procedure 1: Sedation/Anesthesia: 31604 Mod Sedation by the same physician;Init15 Min Child Age 5 & Up Procedure 2: Sedation/Anesthesia: 03771 Mod Sedation by the same physician; Ea [id number] Minutes PG Care Time/CCT Total # of Minutes Spent Total Time Spent with Patient: Total time spent is greater than 50% in coordination of care (as documented) at patient's floor/unit and/or counseling patient:
--- NOTE | 2021-01-09 15:36 | Post Anesthesia Assessment ---
Date of Service January 09, 2021 Post Sedation Assessment Vital Signs Temp Pulse Pulse Resp BP BP Pulse Ox 01/09/21 15:10 61 16 118/76 91 01/09/21 14:15 52 L 16 118/71 91 01/09/21 13:42 36.5 C 59 L 16 105/70 91 01/09/21 12:51 36.5 C 48 L 16 104/66 91 01/09/21 12:35 61 16 101/64 93 01/09/21 12:20 59 L 16 108/64 93 01/09/21 12:05 36.5 C 55 L 16 116/71 94 01/09/21 11:50 55 L 16 109/69 90 01/09/21 11:30 54 L 16 111/61 93 01/09/21 11:15 56 L 16 103/61 92 01/09/21 10:10 66 16 139/74 95 01/09/21 08:14 36.7 C 66 14 124/74 94 01/09/21 06:30 59 L 13 129/81 01/09/21 06:18 57 L 18 131/88 01/09/21 03:14 36.6 C 60 17 148/92 H 95 01/09/21 02:40 57 L 19 93 01/09/21 02:30 55 L 17 95 01/09/21 02:20 56 L 17 94 01/09/21 02:10 55 L 20 92 01/09/21 02:00 56 L 14 94 01/09/21 01:50 56 L 19 95 01/09/21 01:40 57 L 15 95 01/09/21 01:34 91 H 21 01/09/21 01:15 55 L 19 157/93 H 95 01/09/21 01:00 55 L 19 158/94 H 95 01/09/21 00:42 60 17 160/99 H 96 01/08/21 23:36 95 01/08/21 23:22 68 14 155/87 H 95 01/08/21 20:52 36.9 C 77 18 168/110 H 96 Recovery Score Activity: Moves 4 extremities Respiration: Deep Breath/Cough Circulation: +/-20% PreAnes Value Consciousness: Fully Awake Oxygen Saturation: > 92% On Room Air Post Anesthesia Score: 10 Discharge Sedation Level of Care: Fast Track Phase II Post Sedation Plan On clinical assessment, the patient appears to have tolerated the sedation without complications. Patient is recovering as anticipated. Patient will continue to be monitored by nursing and may be discharged when se dation discharge criteria are met per below protocol. Upon Completions of procedure up to 15 minutes continue every 5 minute vital signs and the P.A.R. score; then discharge to a Phase I or Fast Track to Phase II per the following guidelines: * Discharge Patient to appropriate Phase II area if PAR is 8 or greater or return to pre- procedure baseline. The post - procedure orders will be as directed. * If PAR score is less than 8 or not return to pre-procedure baseline then patient will follow Phase I monitoring till PAR is reached for Phase II. The Phase I may be done in procedure room or may call to secure a Phase I area. * If naloxone or flumazenil are used for reversal, hold in Phase I for continued monitoring from when last reversal dose was given for a minimum of 60 minutes or longer pending the nurse and/or physician discretion of patient condition before discharge to Phase II. Please call the Sedation Physician to re-evaluate and complete post-note for discharge to Phase II area. Do NOT discharge from procedure sedation or Phase 1 until post- sedation evaluation note is complete by procedure /sedation MD Sedation Discharge Instructions to be given to the patient at discharge to home.
--- NOTE | 2021-01-09 16:24 | Discharge Summary ---
Date of Service January 09, 2021 Admission HPI Per Admitting Provider Mr. Zambrano is a 75 yo M with a PMHx of prediabetes, HTN, HLD who presented to the [facility] ED for evaluation of new onset left sided chest pain. It began at 3pm this afternoon after a dental appointment. It radiated the intrascapular region of the back - not up to the jaw or down the left arm. He did find himself slightly short of breath at the time the pain came on - however he denied any nausea or diaphoresis. He states that he took 3 tabs of aspirin 81mg in an effort to treat the pain prior to coming to the ED. For the past 3 months, when outdoors mowing his lawn (with a push mower) he would get pain in the anterior aspect of his neck. It seemed to be exertional. Social Hx: He was a former smoker - quit 40 years ago. No eoth use. Family Hx: Father of an GA at age 58. In the ED, his vitals were normal. Troponin was elevated to 4.8. His CBC was normal. CMP was unremarkable except for an elevated AST of 64. His EKG showed non-specific T wave inversions in lateral leads. CXR was normal. Chest CTA showed no evidence of PE or aortic dissection (per STAT RAD). He was started on a heparin drip (no bolus). Principal Diagnosis multivessel CAD Discharge Exam Constitutional WD/WN, vitals as above Cardiovascular RRR, no murmur, no edema Skin no rashes, warm and dry Psychiatric Orientation: alert and oriented x 3 Affect: + anxious affect Discharge Data Allergies Allergy/AdvReac Type Severity Reaction Status Date / Time No Known Allergies Allergy Unknown Verified 01/08/21 23:47 Consultations 01/08/21 23:46 ED Decision to Admit Stat 01/09/21 03:02 Consult Cardiology Routine 01/09/21 13:53 Burn CD for patient Stat Procedures Performed Operation Date: 01/09/21 10:15 Actual Procedures p Cath, Left w/Cors Vent Grafts - Ihsan Aguilera MD s Cineradiography w/Routine Exam - Ihsan Aguilera MD Ordered Studies 01/08/21 22:56 CT angio chest dissec wo/w con Urgent 01/09/21 10:17 CL Cath Imgs for PACS use only Routine Hospital Course (1) NSTEMI (non-ST elevated myocardial infarction): (2) Hypothyroidism: (3) Hypertension: (4) Hyperlipidemia: (5) Ischemic cardiomyopathy: 75 yo M Hx former smoker 69 pack years, HTN, HLD, hypothyroidism admitted for NSTEMI, and unfortunately found to have severe multivessel CAD on cardiac catheterization. NSTEMI: -Presented with crushing chest pain. -EKG with T wave inversions in lateral leads. -Troponin trend -> 4.8 -> 54. -Chest CTA without aortic dissection or PE. -Placed on heparin and nitro gtt. Asymptomatic since start of these medications. -Cardiac catheterization performed today by Cardiology as follows: 1. Left main: Calcifications noted. No significant CAD. 2. Left anterior descending colon large caliber vessel that wraps around the apex. Ostial to proximal LAD approximately 70%. Mid LAD 70 to 80%, followed by 40%. KAYA-3 flow. Large D1 ostial to proximal 80 to 90%. 3. Circumflex: Medium caliber vessel. Mid circumflex 30 to 40%. Distal circumflex into OM1 50-70%. 4. Right Coronary Artery: Dominant vessel. Large caliber vessel. Proximal RCA 30 to 40%. Mild calcifications noted proximally. Mid RCA 70% followed by 30%. Distal RCA 30%. No significant CAD in the PDA or PL branch. -Recommendation for transfer made; accepting physician Dr. Sher Bonilla with Cardiology with consult to Dr. Donaldson with CT Surgery. -In general, patient will need medication and lifestyle optimization. -Beta aaliyah not started due to bradycardia to 50s. Defer LA, beta aaliyah to tertiary care team. -Holding Plavix given likely CABG within short order. Continue aspirin. -Continue high intensity statin. -A1c 6.3%; will need dietary modification and counseling. Hypothyroidism: -Continue home dose levothyroxine. Code Status: FULL CODE Diet: NPO DVT ppx: Heparin gtt Dispo: Transfer to [facility] Total Time Total Time Spent Total Time Spent (In Minutes): <30 Discharge Plan Discharge Items Patient Disposition: Transfer Acute Care Hospital Reason For Visit: UNSTABLE ANGINA Discharge Diagnosis: multivessel CAD requiring CT Surgery evaluation Condition on Discharge: Fair Activity: Per Instructions section Non-emergency contact: Primary Care Provider and Meat Pumper Call non-emergency contact if: your symptoms worsen Follow-up/Referrals: Rhys George III, MD [Primary Care Provider] - Diet: Heart Healthy Add Attending Provider Instructions: 75 yo M Hx former smoker 69 pack years, HTN, HLD, hypothyroidism admitted for NSTEMI, and unfortunately found to have severe multivessel CAD on cardiac catheterization. NSTEMI: -Presented with crushing chest pain. -EKG with T wave inversions in lateral leads. -Troponin trend -> 4.8 -> 54. -Chest CTA without aortic dissection or PE. -Placed on heparin and nitro gtt. Asymptomatic since start of these medications. -Cardiac catheterization performed today by Cardiology as follows: 1. Left main: Calcifications noted. No significant CAD. 2. Left anterior descending colon large caliber vessel that wraps around the apex. Ostial to proximal LAD approximately 70%. Mid LAD 70 to 80%, followed by 40%. KAYA-3 flow. Large D1 ostial to proximal 80 to 90%. 3. Circumflex: Medium caliber vessel. Mid circumflex 30 to 40%. Distal circumflex into OM1 50-70%. 4. Right Coronary Artery: Dominant vessel. Large caliber vessel. Proximal RCA 30 to 40%. Mild calcifications noted proximally. Mid RCA 70% followed by 30%. Distal RCA 30%. No significant CAD in the PDA or PL branch. -Recommendation for transfer made; accepting physician Dr. Sher Bonilla with Cardiology with consult to Dr. Donaldson with CT Surgery. -In general, patient will need medication and lifestyle optimization. -Beta aaliyah not started due to bradycardia to 50s. Defer LA, beta aaliyah to tertiary care team. -Holding Plavix given likely CABG within short order. Continue aspirin. -Continue high intensity statin. -A1c 6.3%; will need dietary modification and counseling. Hypothyroidism: -Continue home dose levothyroxine. Code Status: FULL CODE Diet: NPO DVT ppx: Heparin gtt Dispo: Transfer to [facility] Pending Studies at Discharge: No Stand-Alone Forms: My [facility] [employer] Skilled Items Patient informed of condition?: Yes DNR: No Discharge Level of Care: Other Communicable Disease: No Discharge Prognosis: Stable Lines: Peripheral IV Urinary Catheter: No Medications and DC Order Prescriptions: Continued amlodipine 2.5 mg tablet 2.5 mg PO DAILY Qty: 90 RF: 3 levothyroxine 137 mcg tablet 137 mcg PO DAILY Qty: 90 RF: 3 aspirin 81 mg Tablet,Delayed Release (Dr/Ec) 81 mg PO HS RF: 0 Discontinued simvastatin 20 mg tablet 20 mg PO HS Qty: 90 RF: 3 aspirin 81 mg Tablet,Delayed Release (Dr/Ec) 243 mg PO ONCE RF: 0 Discharge Orders: Discharge Order (Routine); Ordered 01/09/21 Ordered By: Kamala Enrique Admission Data Admit Date/Time: 01/09/21 00:02 Attending Provider: Lyndon Glez Admit Provider: Yoselyn Perkins Primary Care Provider: Rhys George III Other Providers: Vitor Anand ; Ihsan Aguilera Supervising Physician Co-Signing Physician Notes I personally examined the patient and verified all bland points of history and exam, discussed case, and agree with decision making with Dr Enrique. feeling anxious. discussed next steps and answered all questions to the best of my ability vitals noted nad heent nc at mmm breathing unlabored no accessory muscle use good effort. Skin shows no rashes no pallor or icterus. Neuro without focal deficits. NSTEMIsevere coronary artery diseasefor transfer for CABG. Discussed secondary risk reduction with med management and lifestyle changes, emphasized these as largely beneficial for the long-term. Otherwise as above. Resident Activity Tracking Resident Involvement: Resident Care Provided Care Provided: Adult Hospital Medicine
--- NOTE | 2021-01-09 19:51 | Billing Data ---
Date of Service January 09, 2021 Coding Level of Care Code D/C DAY MANAGEMENT <30 MINS
--- NOTE | 2021-01-10 01:53 | Billing Data ---
Date of Service January 10, 2021 Coding Level of Care Code 50639 Initial Inpt Care Lvl 3
--- NOTE | 2021-01-11 05:49 | Electrocardiogram Report ---
Test Reason : Blood Pressure : / mmHG Vent. Rate : 070 BPM Atrial Rate : 070 BPM P-R Int : 194 ms QRS Dur : 092 ms QT Int : 408 ms P-R-T Axes : 016 -06 018 degrees QTc Int : 440 ms Normal sinus rhythm Nonspecific T wave abnormality Minor ST elevation in lateral leads Abnormal ECG When compared with ECG of 08-JUL-2013 11:56, ST elevation is now present in Lateral leads QT has lengthened Confirmed by Ihsan Aguilera ([id number]) on 01/11/2021 5:49:27 AM Referred By: REFERRED SELF Confirmed By:Ihsan Aguilera
--- NOTE | 2021-01-11 05:56 | Electrocardiogram Report ---
Test Reason : Blood Pressure : / mmHG Vent. Rate : 065 BPM Atrial Rate : 065 BPM P-R Int : 190 ms QRS Dur : 094 ms QT Int : 404 ms P-R-T Axes : 013 007 093 degrees QTc Int : 420 ms Sinus rhythm with occasional Premature ventricular complexes Septal infarct , age undetermined T wave abnormality, consider lateral ischemia Minor ST elevation in lateral leads, consider injury pattern Abnormal ECG When compared with ECG of 08-JAN-2021 21:01, Premature ventricular complexes are now Present Inverted T waves have replaced nonspecific T wave abnormality in Lateral leads Confirmed by Ihsan Aguilera ([id number]) on 01/11/2021 5:55:56 AM Referred By: REFERRED SELF Confirmed By:Ihsan Aguilera
--- NOTE | 2021-01-11 05:57 | Electrocardiogram Report ---
Test Reason : Blood Pressure : / mmHG Vent. Rate : 062 BPM Atrial Rate : 062 BPM P-R Int : 196 ms QRS Dur : 094 ms QT Int : 394 ms P-R-T Axes : 002 -10 069 degrees QTc Int : 399 ms Normal sinus rhythm T wave abnormality, consider lateral ischemia Minor ST elevation in lateral leads, consider injury pattern Abnormal ECG When compared with ECG of 08-JAN-2021 22:53, Premature ventricular complexes are no longer Present Confirmed by Ihsan Aguilera ([id number]) on 01/11/2021 5:56:42 AM Referred By: REFERRED SELF Confirmed By:Ihsan Aguilera
--- NOTE | 2021-01-11 06:08 | Electrocardiogram Report ---
Test Reason : Blood Pressure : / mmHG Vent. Rate : 058 BPM Atrial Rate : 058 BPM P-R Int : 188 ms QRS Dur : 098 ms QT Int : 460 ms P-R-T Axes : 035 -02 144 degrees QTc Int : 451 ms Sinus bradycardia Septal infarct , age undetermined T wave abnormality, consider lateral ischemia Minor ST elevation, consider lateral injury Abnormal ECG When compared with ECG of 08-JAN-2021 23:28, QT has lengthened Confirmed by Ihsan Aguilera ([id number]) on 01/11/2021 6:08:07 AM Referred By: REFERRED SELF Confirmed By:Ihsan Aguilera
--- NOTE | 2021-01-12 05:48 | Electrocardiogram Report ---
Test Reason : Blood Pressure : / mmHG Vent. Rate : 057 BPM Atrial Rate : 057 BPM P-R Int : 192 ms QRS Dur : 096 ms QT Int : 484 ms P-R-T Axes : 024 -01 157 degrees QTc Int : 471 ms Sinus bradycardia Prolonged QT Abnormal ECG When compared with ECG of 09-JAN-2021 05:39, No significant change was found Confirmed by Ihsan Aguilera ([id number]) on 01/12/2021 5:48:30 AM Referred By: REFERRED SELF Confirmed By:Ihsan Aguilera
== END 2021-01-09 17:44 | disposition short-term general hospital (02) | DRG 282 ==
LOC: ED 20:35 → EDINP 01-09 00:02 → SUATTDRO 01-09 00:02 → EDINP 01-09 02:43